=== PATIENT | female | born 1965 | race Caucasian/White ===

== ENCOUNTER 2018-04-04 09:22 | Outpatient (CLI) | payer OTHER ==
--- NOTE | 2018-04-19 11:01 | MMO ---
BILATERAL SCREENING MAMMOGRAM: Date: 04/04/18 HISTORY: 53-year-old female. Routine screening mammography. COMPARISON: 05/07/13. TECHNIQUE: CC and MLO views of both breasts are submitted for interpretation. Images obtained with implants pres ent and implants displaced. This patient's mammogram was reviewed with the assistance of computer-aided detection. FINDINGS: The breasts are composed of heterogeneously dense fibroglandular tissue, which limits the sensitivity of mammography in the detection of underlying malignancy. Bilaterally, no suspicious dominant mass, architectural distortion, or suspicious calcifications. Thee ateral benign-appearing calcifications are identified. Bilateral implants are intact. IMPRESSION: BIRADS 2: Benign Finding(s) RECOMMENDATION: Annual mammogram. POS: [facility]
== END 2018-04-04 09:23 | disposition home or self-care (01) ==
LOC: SCSMAMMO 09:22
PROVIDERS: ATTEND Family Medicine
DX: Z12.31 Encounter for screening mammogram for malignant neoplasm of breast (principal)
CPT/HCPCS: 77067